=== PATIENT | male | born 1995 | race African-American/Black ===

== ENCOUNTER 2022-02-20 19:19 | Emergency (ER) | payer MEDICAID ==
[~2022-02-20] VITALS: Ht 172.7 cm; Wt 64.0 kg
[2022-02-20] MEDS ORDERED: FENTANYL CITRATE/PF 50MCG/ML 2ML VIAL IV ONE (19:30)
[2022-02-20] MEDS ORDERED: TETANUS, DIPHTHERIA, PERTUSSIS VAC/PF 0.5ML (>10YR OLD) IM ONE (19:30)
[2022-02-20 20:15] VITALS: BP 132/72
== END 2022-02-20 21:06 | disposition short-term general hospital (02) ==
LOC: ER 19:19
DX: S42.29 Other fracture of upper end of humerus (principal); S44.8X1A Injury of other nerves at shoulder and upper arm level, right arm, initial encounter; X93.XXXA Assault by handgun discharge, initial encounter; Y93.89 Activity, other specified; Y92.488 Other paved roadways as the place of occurrence of the external cause
CPT/HCPCS: 73030; 90471; 90715; 96374; 99291; J3010